=== PATIENT | male | born 1965 | race Caucasian/White ===

== ENCOUNTER 2021-03-07 17:33 | Inpatient (IN) | payer OTHER ==
[~2021-03-07] VITALS: Ht 182.9 cm; Wt 101.3 kg
--- NOTE | 2021-03-07 17:40 | NUR ---
R EYE BLURRING VISION STARTED 5 HOURS AGO. HEADACHE, DIZZINESS FOR THE PAST 5 DAYS. PATIENT A/OX4, BREATHINGE CORNELIO AND UNLABORED, NO SOB NOTED, ATTACHED TO E GAME AND FISH PROTECTOR, DR. RAGSDALE AT BEDSIDE FOR EVAL.
--- NOTE | 2021-03-07 17:47 | NUR ---
CODE STROKE ACTIVATED. IV LINE ESTABLISHED, BLOOD DRAWN AND SENTT O LAB.
--- NOTE | 2021-03-07 17:48 | NUR ---
PT BROUGHT TO CT.
[2021-03-07] MEDS ORDERED: IV NS 0.9% 250 ML IV ONE (17:52)
[2021-03-07] MEDS ORDERED: IOHEXOL-350 100 ML VIAL IV ONE (17:52)
[2021-03-07 17:55] LABS: BASOPHILS % (AUTO) 0.6 % (0.0-2.0); EOSINOPHILS % (AUTO) 3.8 % (0.0-6.0); HEMATOCRIT 47 % (39-51); LYMPHOCYTES # (AUTO) 2.9 /CMM (0.8-4.8); LYMPHOCYTES % (AUTO) 35.9 % (20.0-44.0); MEAN CORPUSCULAR HGB CONC 34 g/dl (31.0-36.0); MEAN CORPUSCULAR VOLUME 84 fL (80-96); MONOCYTES # (AUTO) 0.5 /CMM (0.1-1.30); MONOCYTES % (AUTO) 6.4 % (2.0-12.0); NEUTROPHILS # (AUTO) 4.3 /CMM (1.8-8.9); NEUTROPHILS % (AUTO) 53.3 % (43.0-81.0); PLATELET COUNT (AUTO) 266 /CMM (150-450); RED BLOOD CELL COUNT(AUTO) 5.59 MIL/uL (4.5-6.0); WHITE BLOOD COUNT (AUTO) 8.1 K/uL (4.3-11.0)
[2021-03-07 18:00] LABS: CALCIUM, SERUM 9.2 mg/dL (8.5-10.1); CARBON DIOXIDE 24 mmol/L (21-32); CHLORIDE 103 mmol/L (98-107); CREATININE 1.2 mg/dL (0.6-1.3); GLUCOSE 151 mg/dL (74-106); POTASSIUM 3.7 mmol/L (3.5-5.1); SODIUM SERUM 140 mmol/L (136-145); UREA NITROGEN, BLOOD 15 mg/dL (7-18)
[2021-03-07] MEDS ORDERED: IV NS 0.9% 1,000 ML BAG IV ONE (18:00)
[2021-03-07] MEDS ORDERED: ONDANSETRON HCL/PF 4 MG/2 ML VIAL IVP ONE (18:00)
[2021-03-07] MEDS ORDERED: LABETALOL 20 MG/4 ML VIAL IV ONE (18:00)
[2021-03-07] MEDS ORDERED: TETRAcaine 5 ML BOTTLE EACHEYE ONE (18:00)
[2021-03-07] MEDS ORDERED: NIFE-34 PO (18:03)
[2021-03-07] MEDS ORDERED: TAMS-12 PO (18:03)
[2021-03-07] MEDS ORDERED: FINA5TAB11 PO (18:03)
[2021-03-07] MEDS ORDERED: URSO300C12 PO (18:03)
[2021-03-07] MEDS ORDERED: GLIM1TAB18 PO (18:03)
[2021-03-07] MEDS ORDERED: ATOR10TA PO (18:03)
--- NOTE | 2021-03-07 18:05 | NUR ---
NIHSS SCORE 0.
--- NOTE | 2021-03-07 18:08 | NUR ---
PATIENT PASSED THE SWALLOW EVAL. ABLE TO DRINK 5ML OF WATER.
[2021-03-07] MEDS ORDERED: ONDANSETRON HCL/PF 4 MG/2 ML VIAL ONE (18:16)
[2021-03-07 18:34] LABS: CHOLESTEROL 138 mg/dL (<200); HDL CHOLESTEROL 52 mg/dL (40-60); LDL 65 mg/dL (0-99); TRIGLYCERIDES 161 mg/dL (30-150)
--- NOTE | 2021-03-07 18:40 | NUR ---
WAITING FOR TELE NEURO.
--- NOTE | 2021-03-07 18:40 | NUR ---
CAYETANO AT BEDSIDE FOR EVAL.
--- NOTE | 2021-03-07 18:55 | NUR ---
PATIENT A/OX4, RESTING, IN NO DISTRESS NOTED. NEEDS ATTENDED. STS HE FEELS BETTER.
--- NOTE | 2021-03-07 19:04 | NUR ---
TELE NEURO MD CALLED AND ASSESSED THE PATIENT.
--- NOTE | 2021-03-07 19:13 | NUR ---
PATIENT AMBULATORY WITH STEADY GAIT, WHEN IN BED, PATIENT STS HIS VISION IS BETTER. BUT WHEN HE STOOD UP HE STARTED HAVING DOUBLE VISION.
--- NOTE | 2021-03-07 19:55 | NUR ---
NEGATIVE COVID RESULT
--- NOTE | 2021-03-07 21:31 | NUR ---
gave report to Malcolm Barrientos for stephie
[2021-03-07 21:55] VITALS: BP 162/97
[2021-03-07] MEDS ORDERED: ENALAPRILAT INJ (1.25 MG/ML) 1.25 MG/ML VIAL IV PRN (22:00)
[2021-03-07] MEDS ORDERED: SIMVASTATIN 40 MG TABLET PO SCH (22:00)
[2021-03-07 22:30] VITALS: BP 162/97
[2021-03-07] MEDS ORDERED: ZOLPIDEM TARTRATE 10 MG TABLET PO PRN (22:30)
[2021-03-07] MEDS ORDERED: HYDROCODONE/APAP 5/325MG TABLET PO PRN (22:30)
[2021-03-07] MEDS ORDERED: HYDROCODONE/APAP 10/325MG TABLET PO PRN (22:30)
--- NOTE | 2021-03-07 22:45 | NUR ---
NURSING TEACHERPIPE LAYER NOTES Patient arrived to floor at 2145 from ER accompanied by nurse. A&Ox4, VSS. Patient c/o double vision and mild headache. SBP went up to 170s but went back down to 150s without intervention. Upon assessment NIHSS score of 0. pupils equal and reactive to light, extremities movement and sensation equal. Skin intact. Lung sounds clear throughout. Bowel sounds active x4 quadrants. Patient is ambulatory by himself when his vision is not impaired. In no acute distress. Per patient his diplopia comes and goes. Able to make needs known. Tele monitor applied. Oriented to unit, call light, bed controls. Will monitor closely.
[2021-03-07] MEDS: BLOOD SUGAR DIAGNOSTIC 1 EACH STRIP IN SCH (23:23)
[2021-03-07] MEDS: ENOXAPARIN SODIUM 40 MG/0.4 ML DISP.SYRIN SQ SCH (23:25)
[2021-03-07] MEDS ORDERED: SIMVASTATIN 20 MG TABLET PO SCH (23:30)
[2021-03-08] VITALS: BP 153/92
[2021-03-08] MEDS ORDERED: SIMVASTATIN 20 MG TABLET PO ONE
[2021-03-08] MEDS ORDERED: ASPIRIN 325 MG TABLET PO ONE
--- NOTE | 2021-03-08 03:45 | NUR ---
DRY GOODS INSPECTOR NOTES At 0345 patient c/o 5/10 headache to L side of head described as shooting. PRN [place] 5-325 given for pain. Will reassess.
[2021-03-08 03:55] VITALS: BP 106/66
[2021-03-08 06:09] LABS: BASOPHILS % (AUTO) 0.8 % (0.0-2.0); EOSINOPHILS % (AUTO) 6.3 % (0.0-6.0); HEMATOCRIT 44 % (39-51); HEMOGLOBIN 14.7 g/dL (13.5-17.5); LYMPHOCYTES % (AUTO) 33.9 % (20.0-44.0); MEAN CORPUSCULAR HGB CONC 34 g/dl (31.0-36.0); MEAN CORPUSCULAR VOLUME 85 fL (80-96); MONOCYTES # (AUTO) 0.5 /CMM (0.1-1.30); MONOCYTES % (AUTO) 8.1 % (2.0-12.0); NEUTROPHILS % (AUTO) 50.9 % (43.0-81.0); PLATELET COUNT (AUTO) 209 /CMM (150-450); RED BLOOD CELL COUNT(AUTO) 5.09 MIL/uL (4.5-6.0); WHITE BLOOD COUNT (AUTO) 5.9 K/uL (4.3-11.0)
[2021-03-08 06:13] LABS: CALCIUM, SERUM 8.5 mg/dL (8.5-10.1); CREATININE 0.9 mg/dL (0.6-1.3); POTASSIUM 3.5 mmol/L (3.5-5.1)
--- NOTE | 2021-03-08 06:38 | NUR ---
GAS MASK INSPECTOR CLOSING NOTES Patient is A&Ox4. VSS. Elevated B/P resolved. migraine resolved after PRN medication administration. Currently no double vision. Patient reports he slept well. 0630 Blood glucose 117.
[2021-03-08 06:42] LABS: THYROID STIMULATING HORMONE 4.149 uIU/mL (0.358-3.74)
[2021-03-08] MEDS: BLOOD SUGAR DIAGNOSTIC 1 EACH STRIP IN SCH ×4 (07:19→22:07)
--- NOTE | 2021-03-08 07:32 | NUR ---
FIELD TRAINER OPENING NOTES RECEIVED IN BED, AWAKE, ALERT AND ORIENTED X 4. WITH SALINE LOCK ON RAC G#18, INTACT, PATENT AND FLUSHES WELL. NO DRIFTING NOTED ON BOTH UPPER AND LOWER EXTREMITIES. PATIENT HAS C/O DOUBLE VISION. PATIENT WAS ABLE TO SWALLOW WATER AND APPLESAUCE WITHOUT ANY DIFFICULTY, NO COUGHING NOTED. NO COMPLAINTS OF PAIN OR DISCOMFORT AT THIS TIME. SAFETY PRECAUTIONS OBSERVED AND MAINTAINED: BED ON LOWEST LOCKED POSITION, SIDE RAILS UP X 2. KEPT CALL LIGHT WITHIN EASY REACH. WILL CONTINUE TO MONITOR PATIENT'S CURRENT STATUS.
[2021-03-08 08:00] VITALS: BP 141/98
[2021-03-08] MEDS: PANTOPRAZOLE 40 MG TABLET.DR PO SCH (08:05)
[2021-03-08] MEDS: TAMSULOSIN 0.4 MG CAP.SR.24H PO SCH (08:26)
[2021-03-08] MEDS: GLIMEPIRIDE 1 MG TABLET PO SCH (08:28)
[2021-03-08] MEDS: ASPIRIN EC 325 MG TABLET.DR PO SCH (08:28)
[2021-03-08] MEDS: URSODIOL 300 MG CAPSULE PO SCH ×3 (08:29→16:11)
[2021-03-08] MEDS: NIFEdipine XL (30MG) 30 MG TAB PO SCH (08:29)
[2021-03-08] MEDS ORDERED: NIFEdipine XL (30MG) 30 MG TAB PO SCH (09:00)
--- NOTE | 2021-03-08 10:53 | NUR ---
RN NOTES FOLLOWED UP MRI SCHEDULE, SPOKE TO [facility], PER BECKI THEY WILL GIVE US A CALL REGARDING SCHEDULE ONCE THEY ARE READY.
[2021-03-08] MEDS ORDERED: MORPHINE SULFATE INJ 2 MG/ML DISP.SYRIN IV PRN (11:30)
[2021-03-08] MEDS ORDERED: CLONIDINE HCL 0.1 MG TABLET PO PRN (11:30)
--- NOTE | 2021-03-08 11:39 | NUR ---
RN NOTES PATIENT NOTED WITH ELEVATED BLOOD PRESSURE OF 163/105 AND HAS COMPLAINTS OF HEADACHE, DR. MEJIAS INFORMED WITH ORDERS MADE AND CARRIED OUT. CATAPRES 0.1 MG 1 TAB BY MOUTH GIVEN ORDERED. PATIENT REFUSED PAIN MEDICATION.
[2021-03-08 16:00] VITALS: BP 129/84
--- NOTE | 2021-03-08 17:51 | NUR ---
TABLE LEVER OPERATOR CLOSING NOTES PATIENT IN BED, AWAKE, ALERT AND ORIENTED X 4. WITH SALINE LOCK ON RAC G#18, INTACT, PATENT AND FLUSHES WELL. NO DRIFTING NOTED ON BOTH UPPER AND LOWER EXTREMITIES. NO COMPLAINTS OF DOUBLE VISION AT THIS TIME. NO COMPLAINTS OF PAIN OR DISCOMFORT AT THIS TIME. ON TELEMONITOR , NSR NOTED HR B/W 60'S TO 70'S. SAFETY PRECAUTIONS OBSERVED AND MAINTAINED DURING THE SHIFT: BED ON LOWEST LOCKED POSITION, SIDE RAILS UP X 2. KEPT CALL LIGHT WITHIN EASY REACH. MRI SCHEDULE CANCELLED TODAY D/T TECHNICAL ISSUES, RE-SCHEDULED FOR MRI TOMORROW. ENDORSED TO SUPERVISOR GENERAL RN FOR CONTINUITY OF CARE.
--- NOTE | 2021-03-08 19:30 | NUR ---
RN OPENING NOTES Patient was seen awake resting in bed. Patient's alert and oriented x4. Patient's on room air with no respiratory distress noted. Patient's on a tele monitor with no cardiac distress. Patient has an IV access on his right AC. Safety measures in place: Bed locked, side rails up x2, and call light within easy reach of the patient.
[2021-03-08 20:00] VITALS: BP 141/81
[2021-03-08] MEDS: ENOXAPARIN SODIUM 40 MG/0.4 ML DISP.SYRIN SQ SCH (21:14)
--- NOTE | 2021-03-08 21:44 | NUR ---
RN NOTES Patient's blood sugar is 106 mg/dL. Checked @ 6709.
[2021-03-08] MEDS ORDERED: SIMVASTATIN 20 MG TABLET PO SCH (22:00)
[2021-03-09] VITALS: BP 144/89
[2021-03-09 04:00] VITALS: BP 142/93
[2021-03-09 06:02] LABS: BASOPHILS % (AUTO) 0.5 % (0.0-2.0); EOSINOPHILS % (AUTO) 7.2 % (0.0-6.0); HEMATOCRIT 44 % (39-51); HEMOGLOBIN 14.9 g/dL (13.5-17.5); LYMPHOCYTES # (AUTO) 2.1 /CMM (0.8-4.8); LYMPHOCYTES % (AUTO) 35.4 % (20.0-44.0); MEAN CORPUSCULAR HGB CONC 34 g/dl (31.0-36.0); MEAN CORPUSCULAR VOLUME 85 fL (80-96); MONOCYTES # (AUTO) 0.5 /CMM (0.1-1.30); MONOCYTES % (AUTO) 8.6 % (2.0-12.0); NEUTROPHILS # (AUTO) 2.8 /CMM (1.8-8.9); NEUTROPHILS % (AUTO) 48.3 % (43.0-81.0); PLATELET COUNT (AUTO) 204 /CMM (150-450); RED BLOOD CELL COUNT(AUTO) 5.12 MIL/uL (4.5-6.0); WHITE BLOOD COUNT (AUTO) 5.9 K/uL (4.3-11.0)
--- NOTE | 2021-03-09 06:18 | NUR ---
RN NOTES Patient's blood sugar is 114 mg/dL. Checked @ 0618.
[2021-03-09 06:21] LABS: CREATININE 1.1 mg/dL (0.6-1.3); PHOSPHORUS 4.7 mg/dL (2.5-4.9); POTASSIUM 3.5 mmol/L (3.5-5.1)
[2021-03-09] MEDS: BLOOD SUGAR DIAGNOSTIC 1 EACH STRIP IN SCH ×3 (06:32→17:45)
--- NOTE | 2021-03-09 06:39 | NUR ---
RN CLOSING NOTES Patient was seen awake lying down in bed. Patient's alert and oriented x4. Patient's on room air with no respiratory distress noted. Patient's on a tele monitor with no cardiac distress. Patient has an IV access on his right AC which is intact & patent. Safety measures in place: Bed locked, side rails up x2, and call light within easy reach of the patient. Will endorse care to next shift nurse. Addendum: 03/09/21 at 0709 by GAYE CHENEY RN Per patient, during the corn press operator, he had an episode of diplopia while walking with standby assistance with the BUILDINGS AND GROUNDS SUPERINTENDENT. Patient does not experience diplopia while standing still or when lying down on his bed. The next shift nurse was made aware.
[2021-03-09 07:51] VITALS: BP 135/87
--- NOTE | 2021-03-09 07:55 | NUR ---
MS RN OPENING NOTES RECEIVED PATIENT IN BED, AWAKE, A/O X4. PATIENT ON ROOM AIR; BREATHING IS EVEN AND UNLABORED; NO SOB PRESENT AT THIS TIME. NO COMPLAINS OF PAIN. TELE MONITOR WITH A CURRENT READING OF SR 65 BPM. RAC IV ACCESS G # 18; SL PRESENT AND INTACT. SAFETY PRECAUTIONS IN PLACE; BED IN LOW POSITION AND LOCKED, RAILS UP X2, CALL LIGHT WITHIN REACH. WILL CONTINUE TO MONITOR PATIENT.
[2021-03-09] MEDS: URSODIOL 300 MG CAPSULE PO SCH ×2 (08:15→16:07)
[2021-03-09] MEDS: PANTOPRAZOLE 40 MG TABLET.DR PO SCH (08:15)
[2021-03-09] MEDS: TAMSULOSIN 0.4 MG CAP.SR.24H PO SCH (08:16)
[2021-03-09] MEDS: ASPIRIN EC 325 MG TABLET.DR PO SCH (08:16)
[2021-03-09] MEDS: NIFEdipine XL (30MG) 30 MG TAB PO SCH (08:16)
[2021-03-09] MEDS: GLIMEPIRIDE 1 MG TABLET PO SCH (08:17)
[2021-03-09] MEDS ORDERED: LISI-768 PO (08:40)
[2021-03-09] MEDS ORDERED: ATOR10TA PO (08:40)
[2021-03-09] MEDS ORDERED: DOCUSATE SODIUM 100 MG CAPSULE PO SCH (09:00)
[2021-03-09] MEDS ORDERED: POLYVINYL ALCOHOL 15 ML BOTTLE EACHEYE PRN (09:30)
--- NOTE | 2021-03-09 14:10 | NUR ---
Lawn Specialist Consult: account services coordinator consult requested for possible stroke. Per chart, patient presented to the hospital on 03/07/21 with complaints of blurry vision, headache and dizziness. Patient is a 55-year-old, male. SW met with the patient in his hospital room on the med-surgical unit. Patient was alert and oriented x4. Patient was calm and resting. Patient is currently living alone at [address] [place] [address]; [phone]. Patient stated that his car is parked at the hospital. SW asked patient if he has access to social support and patient stated that he has support from his family. Patient stated that he is currently employed and is independent with his ADLs. Patient denies history of substance use. SW assessed patients history of mental illness and patient denied history. Patient denies suicidal or homicidal ideation. SW administered PHQ-9 assessment and patient scored 1. Patient stated that he has had some trouble concentrating. Discharge plans discussed with the patient, and patient stated that he will return to his prior living arrangement at home. SW discussed transportation with the patient and patient stated that he will return home using his car, which he parked at the hospital. PLAN: Patient stated that he will return to his prior living arrangement. No further SS intervention at this time, however, SW will remain available as needed.
[2021-03-09 16:43] VITALS: BP 134/91
--- NOTE | 2021-03-09 18:01 | NUR ---
MS FLOOR AND WALL APPLIER LIQUID NOTES PATIENT DISCHARGED HOME IN MEDICALLY STABLE CONDITION. PATIENT A/O X4, AMBULATORY AND ABLE TO MAKE NEEDS KNOWN. ALL DISCHARGE DOCUMENTATION READY AND TEACHING PROVIDED WITH PHYSICIAN DISCHARGE ORDERS; PATIENT VERBALIZED UNDERSTANDING. BELONGINGS ACCOUNTED FOR AND FORM SIGNED WELL. SKIN INTACT. BEFORE LEAVING THE UNIT IV ACCESS WAS REMOVED WITH THE WRISTBAND. PATIENT LEFT THE UNIT ACCOMPANIED BY RN AT 1757. PATIENT LEFT THE HOSPITAL IN A PRIVATE CAR.
== END 2021-03-09 17:56 | disposition home or self-care (01) | DRG 199 ==
LOC: ER 17:39 → TELE 21:15 → MED 03-09 10:45
PROVIDERS: ADMIT Nurse Practitioner Acute Care; ATTEND Internal Medicine
DX: I16.1 Hypertensive emergency (principal); E88.81 Metabolic syndrome and other insulin resistance; E11.9 Type 2 diabetes mellitus without complications; E66.9 Obesity, unspecified; J32.0 Chronic maxillary sinusitis; E78.5 Hyperlipidemia, unspecified; F41.9 Anxiety disorder, unspecified; G43.909 Migraine, unspecified, not intractable, without status migrainosus; I10 Essential (primary) hypertension; N40.0 Benign prostatic hyperplasia without lower urinary tract symptoms; Z20.822 Contact with and (suspected) exposure to COVID-19; Z79.84 Long term (current) use of oral hypoglycemic drugs; Z79.899 Other long term (current) drug therapy; Z68.30 Body mass index [BMI] 30.0-30.9, adult; Z90.49 Acquired absence of other specified parts of digestive tract; H54.7 Unspecified visual loss
CPT/HCPCS: 36415; 70450-TC; 70496-TC; 70498-TC; 70551-TC; 71045-TC; 80048-TC; 80061-TC; 82962-TC; 83735-TC; 84100-TC; 84443-TC; 84484-TC; 85025-TC; 85652-TC; 85730-TC; 86140-TC; 87081-TC; 92526; 92611-TC; 93307-TC; 93880-TC; 97112-TC; 97116-TC; 97530-TC; C9803; G0378; J1650; J2405; J3490; J7030; J7050; Q9967

== ENCOUNTER 2024-10-09 05:23 | Emergency (ER) | payer OTHER ==
[~2024-10-09] VITALS: Ht 182.9 cm; Wt 105.7 kg
[~2024-10-09 05:23] MED LIST: ATOR10TA PO; GLIM1TAB18 PO; LISI-768 PO; NIFE-34 PO; TAMS-12 PO; URSO300C12 PO
[2024-10-09 07:08] LABS: BASOPHILS % (AUTO) 0.8 % (0.0-2.0); EOSINOPHILS # (AUTO) 0.4 K/uL (0.0-0.7); EOSINOPHILS % (AUTO) 6.5 % (0.0-6.0); HEMATOCRIT 42 % (39-51); HEMOGLOBIN 14.6 g/dL (13.5-17.5); LYMPHOCYTES # (AUTO) 1.7 K/uL (0.8-4.8); MEAN CORPUSCULAR HEMOGLOBIN 30 PG (26.0-33.0); MEAN CORPUSCULAR HGB CONC 35 g/dl (31.0-36.0); MEAN CORPUSCULAR VOLUME 85 fL (80-96); MONOCYTES # (AUTO) 0.5 K/uL (0.1-1.30); MONOCYTES % (AUTO) 8.4 % (2.0-12.0); NEUTROPHILS # (AUTO) 3.1 K/uL (1.8-8.9); NEUTROPHILS % (AUTO) 54.3 % (43.0-81.0); PLATELET COUNT (AUTO) 194 K/uL (150-450); RED BLOOD CELL COUNT(AUTO) 4.95 MIL/uL (4.5-6.0); RED CELL DISTRIBUTION WIDTH 13.5 % (11.5-15.0); WHITE BLOOD COUNT (AUTO) 5.8 K/uL (4.3-11.0)
[2024-10-09 07:15] LABS: CALCIUM, SERUM 8.9 mg/dL (8.5-10.1); CREATININE 1.1 mg/dL (0.6-1.3); POTASSIUM 4.1 mmol/L (3.5-5.1)
[2024-10-09 07:21] LABS: BILIRUBIN,DIRECT 0.1 mg/dL (0.0-0.2); BILIRUBIN,TOTAL 0.5 mg/dL (0.2-1.0); TOTAL PROTEIN, SERUM 7.2 g/dL (6.4-8.2)
[2024-10-09] MEDS ORDERED: PANT40TA2 PO (07:44)
[2024-10-09 08:13] VITALS: BP 125/87; TEMP 98; O2SAT 99
[2024-10-09 08:26] LABS: APPEARANCE,URINE CLEAR (CLEAR); BILIRUBIN,URINE NEGATIVE (NEGATIVE); BLOOD, URINE TRACE-INTA Ery/uL (NEGATIVE); COLOR,URINE YELLOW (YELLOW); KETONES,URINE NEGATIVE (NEGATIVE); LEUKOCYTE ESTERASE ,URINE TRACE (NEGATIVE); NITRITE, URINE NEGATIVE (NEGATIVE); PH,URINE 5.5 (5.0-8.0); PROTEIN,URINE NEGATIVE (NEGATIVE); UGLUCOSE NEGATIVE (NEGATIVE); UROBILINOGEN,URINE 0.2 EU/dL (0.2)
[2024-10-09 08:38] LABS: ADD URINE CULTURE YES; BACTERIA,URINE Few /HPF (None Seen); SQUAMOUS EPITHELIAL CELL,UR Rare /HPF (None Seen)
== END 2024-10-09 08:13 | disposition home or self-care (01) ==
LOC: ER 05:29
DX: R10.9 Unspecified abdominal pain (principal); E11.9 Type 2 diabetes mellitus without complications; I10 Essential (primary) hypertension; Z79.899 Other long term (current) drug therapy; Z86.73 Personal history of transient ischemic attack (TIA), and cerebral infarction without residual deficits; Z90.49 Acquired absence of other specified parts of digestive tract; Z86.79 Personal history of other diseases of the circulatory system; Z87.19 Personal history of other diseases of the digestive system; Z87.39 Personal history of other diseases of the musculoskeletal system and connective tissue
CPT/HCPCS: 36415; 80048-TC; 80076-TC; 81001; 83690-TC; 85025-TC; 87086-TC